=== PATIENT | female | born 1950 | race Caucasian/White ===

== ENCOUNTER 2024-12-31 06:13 | Day surgery (SDC) | payer MEDICARE, SELFPAY ==
[2024-12-14 11:25] LABS: Mean Corp Hgb Conc. 31.6 g/dL (33.0-37.0); Mean Corpuscular Hgb 29.5 pg (27.0-31.0); Mean Corpuscular Volume 93.4 fL (81.0-99.0); Mean Platelet Volume 9.4 fL (7.4-10.4); Platelet Count 310 10^3/uL (130-400); Red Blood Cell Count 4.07 10^6/uL (4.20-5.40); Red Cell Dist. Width 12.5 % (11.5-14.5); White Blood Cell Count 8.6 10^3/uL (4.8-10.8)
[2024-12-14 12:00] LABS: ALT (SGPT) 24 U/L (0-35); AST (SGOT) 23 U/L (14-36); Albumin 4.7 g/dl (3.5-5.0); Alkaline Phosphatase 63 U/L (38-126); Blood Urea Nitrogen 12 mg/dl (7-17); Carbon Dioxide 26 mmol/L (22-30); Chloride 99 mmol/L (98-107); Glucose 100 mg/dl (70-99); Potassium 5.3 mmol/L (3.5-5.1); Sodium 138 mmol/L (135-145); Total Bilirubin 0.6 mg/dl (0.2-1.3); Total Protein 6.9 g/dl (6.3-8.2); eGFR > 60.00
[2024-12-14 12:33] LABS: Glycohemoglobin (HgbA1c) 5.6 % (4.0-5.6)
[2024-12-14 14:15] VITALS: BMI 35.1
[2024-12-14 15:07] VITALS: BMI 35.1
--- NOTE | 2024-12-18 12:54 | VNURNOTE ---
Addendum entered by Tiki Ross RN 12/19/24 11:16:
[facility] rec'ed call back from patient. She is requesting home VN and PT after surgery and is planning on outpt PT the Tu following surgery 01/06. Encouraged patient that recommendations are to start outpt PT day after same-day surgery. She
is declining and still requesting home PT, VN short term. [facility] notified. This author reached out to [facility] [place] regarding referral. They will not accept. Referral sent to [facility]. Awaiting response.
Original Note:
Chart reviewed. Patient lives in [place]. Per 12/14 H&P, plan is for patient to have L [facility]KA SDS on 12/31 and go to outpt PT on 01/01 [facility]. Called patient to review. No answer, left message.
Plan: Outpt PT after DC.
--- NOTE | 2024-12-19 15:40 | VNURNOTE ---
Addendum entered by Tiki Ross RN 12/20/24 14:20:
Rec'ed confirmation from GABI from [facility] that they will accept patient and PT can do start of care 01/01.
Original Note:
This author reached out to [facility] [place] regarding referral. They will not accept.
Referral sent to [facility]. They will not accept.
Referral sent to [facility]. They will not accept.
Spoke with Aniyah at [facility]. She requested info and they will reply a decision. They cannot provide same day PT. PT can start within 1-2 days after DC. Faxed info to [phone]. . Lizeth DAMON
updated.
[2024-12-31] VITALS (11 sets, daily range): BP systolic 102–151; BP diastolic 55–78; PULSE 60; O2SAT 95
[2024-12-31] MEDS: TYLENOL 650 MG PO (07:53)
[2024-12-31] MEDS: NORMOSOL-R/PLASMALYTE-A 1000 IV (07:54)
[2024-12-31] MEDS: CELEBREX 200 MG PO (07:54)
[2024-12-31] MEDS: BACTROBAN NASAL 1 GRAM NASAL (07:54)
--- NOTE | 2024-12-31 09:43 | CM ---
Patent seen bedside in SDS.
Spoke with [facility] they are starting tomorrow, tentative time 10:30 am, they will contact patient this evening.
Per patient she is aware [facility] will be coming tomorrow, she has her equipment and outpatient therapy set to start 01/07/25.
Spouse will transport home.
[2024-12-31] MEDS: ANCEF 5 IV (14:04)
== END 2024-12-31 14:20 | disposition home health service (06) ==
LOC: SDS 06:13
PROVIDERS: ATTENDING PHYSICIAN Specialist; FAMILY PHYSICIAN Family Medicine
DX: M17.12 Unilateral primary osteoarthritis, left knee (principal); I34.1 Nonrheumatic mitral (valve) prolapse; I34.0 Nonrheumatic mitral (valve) insufficiency; M85.80 Other specified disorders of bone density and structure, unspecified site; M51.369 Other intervertebral disc degeneration, lumbar region without mention of lumbar back pain or lower extremity pain; I10 Essential (primary) hypertension; E66.9 Obesity, unspecified; Z68.35 Body mass index [BMI] 35.0-35.9, adult
CPT/HCPCS: 27447; 36415; 73560; 80053; 83036; 85027; 87070; 93005; 97116; 97162; C1713; C1776